=== PATIENT | female | born 1950 | race Caucasian/White ===

== ENCOUNTER 2016-05-06 10:58 | Day surgery (SDC) | payer OTHER ==
[~2016-05-06 10:58] MED LIST: LIDOCAINE 2% JELLY 20 ML (UROJECT) ONE; levOFLOXACIN 500 MG/DEXTROSE 100 ML IV ONE
[2016-05-06] MEDS ORDERED: levOFLOXACIN 500 MG/DEXTROSE/100 ML BAG IV ONE (11:34)
[2016-05-06] MEDS ORDERED: LIDOCAINE 1% 5 ML SDV ONE (11:34)
[2016-05-06] MEDS ORDERED: fentaNYL 100 MCG/2 ML INJ ONE ×3 (12:15→13:54)
[2016-05-06] MEDS ORDERED: PROPOFOL 200 MG/20 ML VIAL ONE (12:16)
[2016-05-06] MEDS ORDERED: ONDANSETRON 4 MG/2 ML VIAL ONE (12:17)
[2016-05-06] MEDS ORDERED: METOCLOPRAMIDE 10 MG/2 ML VIAL ONE (12:17)
[2016-05-06] MEDS ORDERED: MIDAZOLAM 2 MG/2 ML VIAL ONE (12:43)
[2016-05-06] MEDS ORDERED: ROCURONIUM 50 MG/5 ML VIAL ONE (13:58)
[2016-05-06] MEDS ORDERED: SUGAMMADEX SODIUM 200 MG/2 ML VIAL IVP ONE (14:13)
--- NOTE | 2016-05-06 14:31 | POSTOPPROG ---
Post Op Note Date of Operation: 05/06/16 Surgeon: Yo Sanchez (# [id number]) Anesthesia: LMA Pre-op Diagnosis: Bladder lesions Post-op Diagnosis: Bladder lesions, > 5 cm Procedure: TURBT Findings: See op note Inf/Abcess present in the surg proc area at time of surgery?: No EBL: Minimal (< 10 cc) Complications: None Specimen(s): 1. Right lateral bladder wall 2. Bladder dome
--- NOTE | 2016-05-06 14:57 | GOP ---
[f rep st] OPERATIVE REPORT DATE OF OPERATION: 05/06/2016 SURGEON: Yo Sanchez MD ANESTHESIA: Laryngeal mask. PREOPERATIVE DIAGNOSIS: Abnormal erythematous bladder lesions. POSTOPERATIVE DIAGNOSIS: Abnormal erythematous bladder lesions, greater than 5 cm. PROCEDURE PERFORMED: Transurethral resection and fulguration of bladder lesions, greater than 5 cm. FINDINGS: SPECIMENS: 1. Right lateral wall bladder biopsies. 2. Bladder dome biopsies. ESTIMATED BLOOD LOSS: Less than 10 cc. INDICATIONS: This woman has had issues with recurrent urinary tract infections and underwent recent office cystoscopy, which revealed abnormal bladder lesions involving several areas of her bladder. I t is recommended that she undergo intraoperative biopsies and management at this time. The indicatio ns for the procedure, as well as potential risks and complications were discussed with the patient pr eoperatively. She appeared to understand, her questions were answered, and she wished to proceed. Arsenio edmundo informed surgical consent was thereafter obtained. DESCRIPTION OF PROCEDURE: The patient was brought to the operating room and administered laryngeal m ask anesthesia. She was carefully placed in the dorsal lithotomy position on the cystoscopic table. The genital area was sterilely prepped with Betadine scrub and paint, and then draped in the usual s terile fashion. Cystoscopy was performed with a 30 degree and 70 degree lenses through a 22-Greek sheath. However, the urethra did require dilation with Howard sounds up to 24-Greek before I could insert the cystos copic sheath. The remainder of the urethra was unremarkable. Examination of the bladder revealed se ssile erythema involving the right lateral wall, lateral and posterior to the right ureteral orifice, encompassing at least 2-3 cm. There was a larger area of bladder wall erythema with raised associat ed polyps along the dome and right anterolateral aspects. Slab Miller Operator pictures were taken of thes e areas of the bladder and will be placed in the patient's office chart. Ureteral orifices were norm al in regard to shape and position along the trigone. I used cold cup biopsy forceps to obtain repre sentative biopsies of the right lateral wall lesions and submitted these to Pathology for histologic examination. I then inserted a 26-Greek resectoscope sheath with the obturator, Ling resectoscope, and a rese cting loop. I then carefully resected a significant portion of the erythematous papillary lesions at the dome of the bladder. I then used a button electrode to fulgurate all the biopsied regions of pipo th the dome, as well as the right lateral wall. I did not treat the entire region of erythema along the dome because it was a significant portion of the bladder and I did not feel this would be of bene fit if the biopsy results were benign. Therefore, I did fulgurate the regions that were biopsied luis rufino for hemostasis. At the conclusion of the procedure, the bladder was hemostatic with no eviden ce of gross perforation. The instruments were removed and an 18-Greek Albrecht catheter inserted with 15 cc of sterile fluid olga donna in the balloon. The catheter irrigated manually and the return was very light pink. The cathete r was connected to bag drainage. The patient was then awakened, transferred to her bed, then taken to the recovery room. She tolerate d the procedure well overall. COMPLICATIONS: None. DISPOSITION: She was transferred to the recovery in stable condition and will be discharged with her Albrecht catheter once meeting standard outpatient criteria. She will be instructed to remove her cat heter in 4 days at home and hold her aspirin during that time as well. She will also follow up in my office as scheduled in about 2 weeks. /[id number]/MODL
[2016-05-06] MEDS ORDERED: HYDROCODONE/APAP 5/325 TAB ONE (15:28)
== END 2016-05-06 17:00 | disposition home or self-care (01) ==
LOC: FPAT 10:58 → FSGY 10:58 → FPAT 17:00
PROVIDERS: ATTEND Specialist
PROC: 0TBB8ZZ Excision of Bladder, Via Natural or Artificial Opening Endoscopic (ICD-10-PCS; principal; 2016-05-06 12:45)
DX: N30.00 Acute cystitis without hematuria (principal); N30.20 Other chronic cystitis without hematuria; Z87.440 Personal history of urinary (tract) infections
CPT/HCPCS: J1956; J2250; J2405; J2704; J2765; J3010

== ENCOUNTER → 2017-01-05 | Outpatient (CLI) | payer OTHER | LOC: FIMAGING 15:33 | PROVIDERS: ATTEND Obstetrics & Gynecology | DX: Z12.31 Encounter for screening mammogram for malignant neoplasm of breast (principal) | CPT/HCPCS: G0202 ==

== ENCOUNTER → 2017-02-25 | Outpatient (CLI) | payer OTHER ==
[~2017-02-25] MED LIST changes: +IOPAMIDOL (ISOVUE-300) 100 ML BTL ONE; -LIDOCAINE 2% JELLY 20 ML (UROJECT) ONE; -levOFLOXACIN 500 MG/DEXTROSE 100 ML IV ONE
== END ==
LOC: FIMAGING 15:46
PROVIDERS: ATTEND Physician Assistant Medical
DX: R35.1 Nocturia (principal); R31.29 Other microscopic hematuria; R10.2 Pelvic and perineal pain
CPT/HCPCS: Q9967

== ENCOUNTER → 2017-06-16 | Outpatient (CLI) | payer OTHER | LOC: FIMAGING 13:13 | PROVIDERS: ATTEND Family Medicine | DX: Z13.820 Encounter for screening for osteoporosis (principal); E53.8 Deficiency of other specified B group vitamins; Z78.0 Asymptomatic menopausal state ==

== ENCOUNTER → 2018-01-09 | Outpatient (CLI) | payer OTHER | LOC: FIMAGING 08:42 | PROVIDERS: ATTEND Obstetrics & Gynecology | DX: Z12.31 Encounter for screening mammogram for malignant neoplasm of breast (principal) ==

== ENCOUNTER → 2018-01-13 | Outpatient (CLI) | payer OTHER | LOC: FIMAGING 09:38 | PROVIDERS: ATTEND Obstetrics & Gynecology | DX: N63.23 Unspecified lump in the left breast, lower outer quadrant (principal) ==

== ENCOUNTER → 2018-01-23 | Outpatient (CLI) | payer OTHER ==
[~2018-01-23] MED LIST changes: +BUPIVACAINE 0.5% 30 ML SDV ONE; -IOPAMIDOL (ISOVUE-300) 100 ML BTL ONE; +LIDOCAINE 1% 300 MG/30 ML SDV ONE; +THROMBIN (BOVINE) 5,000 UNIT VIAL TP ONE
== END ==
LOC: FIMAGING 07:24
PROVIDERS: ATTEND Obstetrics & Gynecology
PROC: 0HBU3ZX Excision of Left Breast, Percutaneous Approach, Diagnostic (ICD-10-PCS; principal; 2018-01-23)
DX: C50.412 Malignant neoplasm of upper-outer quadrant of left female breast (principal)

== ENCOUNTER → 2018-02-02 | Outpatient (CLI) | payer OTHER ==
[~2018-02-02] MED LIST changes: -BUPIVACAINE 0.5% 30 ML SDV ONE; +GADOBUTROL 10 ML VIAL IVP ONE; -LIDOCAINE 1% 300 MG/30 ML SDV ONE; -THROMBIN (BOVINE) 5,000 UNIT VIAL TP ONE
== END ==
LOC: FIMAGING 09:49
PROVIDERS: ATTEND Surgery
DX: C50.412 Malignant neoplasm of upper-outer quadrant of left female breast (principal)
CPT/HCPCS: 0159T; 77059; 82565-PO; A9585; C8908

== ENCOUNTER 2018-03-07 09:21 | Inpatient (IN) | payer OTHER ==
--- NOTE | 2018-03-06 08:54 | GHP ---
DATE OF ADMISSION: 03/07/2018 DATE OF SURGERY: Scheduled for 03/07/2018. PREOPERATIVE DIAGNOSIS: Left breast invasive ductal carcinoma. HISTORY OF PRESENT ILLNESS: A 67-year-old woman with a new diagnosis of a left breast cancer. Biopsy showed an invasive ductal carcinoma, ER and LA positive, HER-2/chelsea negative, Ki-67 was 5%. She had a breast MRI performed which showed a 1.8 cm mass in the left upper outer quadrant. No other disease, lymphadenopathy. She had genetic testing performed which was negative. She has a significant family history of breast cancer including a paternal aunt at age 46, a paternal 1st cousin at age 48, and paternal 2nd cousin with a history of ovarian cancer at age 58. She is G3, P3, and was 26 years old at the of her 1st child. First menses at age 13. Started menopause in 2006. She is not of Ashkenazi Zoroastrian descent. PAST MEDICAL HISTORY: Asthma, Mi esophagus, chronic UTI, type 2 diabetes, hypertension, GERD, irritable bowel, obstructive sleep apnea, Prinzmetal angina , vitamin B12 deficiency. PAST SURGICAL HISTORY: Arthroscopic shoulder surgery of the left, arthroscopic right knee surgery with meniscal ectomy, bunionectomy, cystoscopy, finger amputation, colovaginal fistula, hysteroscopy, rectal fissure, tonsillectomy. ALLERGIES: ANGELO inhibitors, chocolate, pineapple, Ditropan, iodine, oxybutynin. FAMILY HISTORY: Significant for type 2 diabetes, NC, stroke, lung disease, colon cancer, breast cancer, emphysema. 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 She has been employed for the last 39 years. Her is also an employee at [employer]. She has 3 children and many grandchildren. She reports occasional alcohol use. No recreational drug use or tobacco use. REVIEW OF SYSTEMS: A 10-point review of systems negative aside from HPI. PHYSICAL EXAMINATION: GENERAL: Well-developed, well-nourished woman in no acute distress. HEENT: Normocephalic, atraumatic. No hearing deficits. Pupils equal and round. No scleral icterus. Mucous membranes moist. NECK: Trachea midline. RESPIRATORY: No increased work of breathing. Clear to auscultation bilaterally. CARDIOVASCULAR: Regular rate and rhythm. No peripheral edema. SKIN: Warm and dry. No rash. PSYCH: Mood and affect normal. NEURO: Grossly intact. BREASTS: Exam performed upright and in supine positions. Palpable left upper outer breast mass. No other palpable breast masses. LYMPH: No cervical, supraclavicular or axillary lymphadenopathy. IMPRESSION AND PLAN: A 67-year-old woman with left breast invasive ductal carcinoma. She has elected to proceed with a bilateral mastectomy with no reconstruction. We discussed risks of surgery, including but not limited to, heart attack, stroke, blood clots, or . We discussed risks of infection, bleeding, damage to surrounding structures, need for additional procedures. She will also undergo sentinel lymph node biopsy of both sides. We discussed risks again of infection, bleeding, damage to surrounding structures, numbness, or lymphedema. She understands risks and would like to proceed. The patient was additionally seen by Dr. Karina Patel who agrees with the above impression and plan. /[id number]/MODL MTDD
[2018-03-07] MEDS ORDERED: ceFAZolin 2 GM/DEXTROSE 100 ML IV ONE ×2 (09:36→23:09)
[2018-03-07] MEDS ORDERED: LR 1,000 ML IV ONE (09:36)
[2018-03-07] MEDS ORDERED: LIDOCAINE 1% 2 ML INJ ID PRN (09:36)
[2018-03-07] MEDS ORDERED: BUPIVACAINE 0.5% 30 ML SDV ONE ×2 (09:42→12:59)
[2018-03-07] MEDS ORDERED: THROMBIN (BOVINE) 20,000 UNIT SPRAY TP ONE (09:42)
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
[2018-03-07] MEDS ORDERED: fentaNYL 100 MCG/2 ML INJ ONE ×2 (11:13→23:39)
[2018-03-07] MEDS ORDERED: PROPOFOL 200 MG/20 ML VIAL ONE (11:14)
--- NOTE | 2018-03-07 11:20 | PDHPUP ---
History & Physical Update H&P update statement: This history and physical update is based on an assessment of the patient which was completed after admission or registration (within 24 hours), but prior to the surgery/procedure. H&P update: H&P reviewed & patient examined, no change in patient's condition since H&P completed
[2018-03-07] MEDS ORDERED: MIDAZOLAM 2 MG/2 ML VIAL IVP ONE (11:23)
[2018-03-07] MEDS ORDERED: MIDAZOLAM 2 MG/2 ML VIAL ONE (11:43)
[2018-03-07] MEDS ORDERED: DEXMEDETOMIDINE HCL 400 MCG in NS 100 ML IV SCH (12:00)
[2018-03-07] MEDS ORDERED: HYDROmorphONE/DILAUDID 2 MG/ML INJ ONE (12:26)
[2018-03-07] MEDS ORDERED: LR 500 ML IV PRN (13:22)
[2018-03-07] MEDS ORDERED: NALOXONE HCL 0.4 MG/ML INJ IVP PRN (13:22)
[2018-03-07] MEDS ORDERED: ONDANSETRON 4 MG/2 ML VIAL IVP PRN (13:22)
[2018-03-07] MEDS ORDERED: ACETAMINOPHEN 500 MG TAB PO PRN (13:22)
[2018-03-07] MEDS ORDERED: LABETALOL HCL 20 MG/4 ML INJ IVP PRN (13:22)
[2018-03-07] MEDS ORDERED: PROMETHAZINE HCL 25 MG/ML INJ IVP PRN (13:22)
[2018-03-07] MEDS ORDERED: ALBUTEROL 3 ML DEYVIAL IH PRN (13:22)
[2018-03-07] MEDS ORDERED: HYDROmorphONE/DILAUDID 2 MG/ML INJ IVP PRN (13:22)
[2018-03-07] MEDS ORDERED: oxyCODONE IR 5 MG TAB PO PRN (13:22)
[2018-03-07] MEDS ORDERED: METOCLOPRAMIDE 10 MG/2 ML VIAL IVP PRN (13:22)
[2018-03-07] MEDS ORDERED: MEPERIDINE 25 MG/0.5 ML AMP IVP PRN (13:22)
[2018-03-07] MEDS ORDERED: fentaNYL 100 MCG/2 ML INJ IVP PRN (13:22)
--- NOTE | 2018-03-07 13:41 | POSTOPPROG ---
Post Op Note Date of Operation: 03/07/18 Surgeon: Karina Patel Cattle Sorter: chaim Anesthesiologist: Jil Anesthesia: GET(General Endotracheal) Pre-op Diagnosis: L breast ca Post-op Diagnosis: same Indication: 67yo F with L breast ca who desires B mastectomy Procedure: B mastectomy with B SLN biopsy Findings: none unusual Inf/Abcess present in the surg proc area at time of surgery?: No EBL: Minimal Drains: Preet Grissom (x2) Specimen(s): B breast - fresh B SLN - permanent
[2018-03-07] MEDS ORDERED: ONDANSETRON DISINTEGRATING 4 MG TAB PO PRN (13:45)
[2018-03-07] MEDS ORDERED: HYDROmorphONE/DILAUDID 1 MG/ML INJ IVP PRN (13:45)
[2018-03-07] MEDS ORDERED: diphenhydrAMINE 25 MG CAP PO PRN (13:45)
[2018-03-07] MEDS ORDERED: TRIAMCINOLONE 0.025% 15 GM OINTTUBE TP PRN (13:46)
[2018-03-07] MEDS ORDERED: NITROGLYCERIN 0.4 MG BTL SL PRN (13:46)
[2018-03-07] MEDS ORDERED: D50W 25 GM/50 ML SYR IVP PRN (13:48)
[2018-03-07] MEDS ORDERED: PHENYLEPHRINE HCL 100 MCG/ML SYR IVP PRN (13:55)
[2018-03-07] MEDS ORDERED: ALBUTEROL 60 PUFFS/8 GM MDI IH PRN (14:45)
--- NOTE | 2018-03-07 17:08 | PDMN ---
Medical Necessity Medical necessity: Pt meets inpt criteria per MD order and [facility] S-[id number], Mastectomy , Complete. 67 y/o w/new diagnosis of L breast cancer, invasive duct carcinoma admitted for bilateral mastectomy w/bilateral SLN biopsy. Pt w/multiple comorbidities including asthma, Prinzmetal angina, Barrets esophagus, type 2 diabetes, HTN, GERD, and obstructive sleep apnea, ASA status III per anesthesia. Given comorbidities, higher risk, anticipate ext recovery time.
[2018-03-07] MEDS: HYDROCODONE/APAP 5/325 TAB PO PRN (19:59)
[2018-03-07] MEDS: metFORMIN HCL 500 MG TAB PO SCH (19:59)
[2018-03-07] MEDS ORDERED: NS 1,000 ML IV ONE (23:00)
--- NOTE | 2018-03-07 23:02 | SOAPPROG ---
SOAP Progress Note Assessment/Plan: Assessment: POD # 0 s/p bilateral mastectomy, bilateral sln for L breast cancer. Was doing very well this afternoon. No pain. No nausea. FANG drains with minimal output Called at home due to feeling cold and clammy, no uop x 7 hours (bladder scan 550) and new hematoma on R chest - was flat 1 hour ago. Hypotensive Ordered straight cath 1 L NS and came in tachy at 125, feeling better Large hematoma. will go to OR to evacuate. Plan: 03/07/18 23:00 03/07/18 23:04 Objective: Vital Signs Temp Pulse Resp BP Pulse Ox 36.7 C 107 H 18 86/46 L 94 03/07/18 22:24 03/07/18 22:24 03/07/18 22:24 03/07/18 22:24 03/07/18 22:24 03/06/18 03/07/18 03/08/18 05:59 05:59 05:59 Intake Total 930 Output Total 155 Balance 775 ICD10 Worksheet Patient Problems: Problems Problem Status Onset Breast cancer in female Acute - ICD10 Problem Qualifiers (1) Breast cancer in female Qualifiers: Estrogen receptor status: positive Laterality: left
[2018-03-07] MEDS: ONDANSETRON 4 MG/2 ML VIAL IVP PRN (23:38)
[2018-03-07] MEDS ORDERED: PROPOFOL/EMULSION 500 MG/50 ML BOTTLE IV ONE (23:40)
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
[2018-03-08] MEDS ORDERED: fentaNYL 100 MCG/2 ML INJ IVP PRN (00:28)
[2018-03-08] MEDS ORDERED: NALOXONE HCL 0.4 MG/ML INJ IVP PRN (00:28)
[2018-03-08] MEDS ORDERED: LR 500 ML IV PRN (00:28)
[2018-03-08] MEDS ORDERED: PHENYLEPHRINE HCL 100 MCG/ML SYR IVP PRN (00:28)
[2018-03-08] MEDS ORDERED: BUPIVACAINE 0.5% 30 ML SDV ONE ×2 (00:31→00:32)
--- NOTE | 2018-03-08 01:31 | POSTOPPROG ---
Post Op Note Date of Operation: 03/08/18 Surgeon: Karina Patel Anesthesiologist: geetha Anesthesia: GET(General Endotracheal) Pre-op Diagnosis: R breast hematoma Post-op Diagnosis: same Indication: 67yo s/p b mastectomy with acute onset hematoma Procedure: evac hematoma Rchest Findings: 500 cc oldblood Inf/Abcess present in the surg proc area at time of surgery?: No Drains: Preet Grissom
--- NOTE | 2018-03-08 01:35 | POSTANESTH ---
Post Anesthetic Evaluation Cardiovascular Status: Normal, Stable Respiratory Status: Normal, Stable Level of Consciousness/Mental Status: Mildly Sleepy, Arousable Pain Control: Adequate, Prn Tx Ordered Nausea/Vomiting Control: Adequate, Prn Tx Ordered Complications Possibly Related to Anesthesia: None Noted
[2018-03-08] MEDS: NS 1,000 ML IV SCH ×3 (02:13→16:30)
[2018-03-08 05:36] LABS: INR 1.17 (0.83-1.16); PROTIME(PATIENT) 15.1 SEC (12.0-15.0)
[2018-03-08] MEDS: metFORMIN HCL 500 MG TAB PO SCH ×2 (08:07→18:30)
[2018-03-08] MEDS: ceFAZolin 2 GM/DEXTROSE 100 ML IV SCH ×2 (08:07→16:30)
[2018-03-08] MEDS: ISOSORBIDE MONONITRATE 30 MG TAB.SR PO SCH (08:07)
[2018-03-08] MEDS: MAGNESIUM OXIDE 400 MG TAB PO SCH (08:07)
[2018-03-08] MEDS: ATORVASTATIN CALCIUM 10 MG TAB PO SCH (08:07)
[2018-03-08] MEDS: LOSARTAN POTASSIUM 50 MG TAB PO SCH (08:08)
[2018-03-08] MEDS: Fluticasone/Vilanterol [Breo Ellipta 200-25 Mcg Inh] IH SCH (08:08)
[2018-03-08] MEDS: PANTOPRAZOLE SODIUM 40 MG TAB PO SCH (08:08)
[2018-03-08] MEDS: INSULIN GLARGINE 100 UNITS/ML UNIT SC SCH (08:08)
[2018-03-08] MEDS: TROSPIUM CHLORIDE 60 MG PO SCH (08:13)
--- NOTE | 2018-03-08 08:25 | POSTANESTH ---
Post Anesthetic Evaluation Cardiovascular Status: Normal, Stable Respiratory Status: Normal, Stable Level of Consciousness/Mental Status: Can Participate in Eval Pain Control: Adequate, Prn Tx Ordered Nausea/Vomiting Control: Adequate, Prn Tx Ordered Complications Possibly Related to Anesthesia: None Noted (Late entry for documentation. Patient was evaluated at the appropriate time on 03/07/18.)
--- NOTE | 2018-03-08 08:43 | SOAPPROG ---
SOAP Progress Note Assessment/Plan: Assessment: POD # 1 s/p bilateral mastectomy, bilateral sln for L breast cancer. POD # 0 for evacuation of R breast hematoma - sudden onset no distinct bleeder raw on muscle Feeling much better this am Acute anemia blood loss - will recheck H/H this afternoon Diabetes - put on Lantus 40 units instead of home dose. If eats more, then will put back on home dose. Continue other DM meds HTN - holding HCTZ PT/OT Will require 2 midnights due to return to OR with acute blood loss anemia. MCKENZIE Albrecht S: Feeling better O: Lying in bed Some ecchymosis R chest but is flat. Dressings dry. FANG with serosanguinous fluid (just emptied) No evidence active bleeding Distant lung sounds Plan: 03/07/18 23:00 03/07/18 23:04 03/08/18 08:37 Objective: Vital Signs Temp Pulse Resp BP Pulse Ox 36.7 C 75 16 142/48 H 98 03/08/18 05:09 03/08/18 05:09 03/08/18 05:09 03/08/18 08:08 03/08/18 05:09 Laboratory Results 03/08/18 04:47 03/08/18 04:47 03/07/18 03/08/18 03/09/18 05:59 05:59 05:59 Intake Total 2380 Output Total 1385 Balance 995 PT 15.1 SEC (12.0-15.0) H 03/08/18 04:47 INR 1.17 (0.83-1.16) H 03/08/18 04:47 ICD10 Worksheet Patient Problems: Problems Problem Status Onset Breast cancer in female Acute - ICD10 Problem Qualifiers (1) Breast cancer in female Qualifiers: Estrogen receptor status: positive Laterality: left
[2018-03-08] MEDS ORDERED: INSULIN GLARGINE 100 UNITS/ML UNIT SC SCH (09:00)
[2018-03-08] MEDS ORDERED: HYDROCHLOROTHIAZIDE 25 MG TAB PO SCH (09:00)
[2018-03-08] MEDS ORDERED: ENOXAPARIN 40 MG/0.4 ML SYR SC SCH (09:00)
[2018-03-08] MEDS: ONDANSETRON 4 MG/2 ML VIAL IVP PRN (12:51)
--- NOTE | 2018-03-08 13:01 | ASMTCMCOM ---
CM Note CM Note Notes: Chart reviewed for discharge planning purposes. Patient is 67 year old female s/p bilateral mastectomies with complication of bleeding and hematoma. Followed by Stephanie Thomas oncology nurse navigator. Therapies pending. No current needs identified. CM available should needs arise. Plan: Likely home with family support when medically cleared for discharge to home. Date Signed: 03/08/2018 01:00 PM Electronically Signed By:Maegan Gonzales RN
[2018-03-09] MEDS: HYDROCODONE/APAP 5/325 TAB PO PRN (01:10)
[2018-03-09] MEDS: NS 1,000 ML IV SCH ×2 (01:36→11:43)
[2018-03-09] MEDS: Fluticasone/Vilanterol [Breo Ellipta 200-25 Mcg Inh] IH SCH (05:50)
[2018-03-09 06:20] LABS: PLATELET COUNT 165 10^3/uL (150-400)
[2018-03-09] MEDS ORDERED: ACETAMINOPHEN 325 MG TAB PO ONE ×3 (07:02→17:06)
[2018-03-09] MEDS: ACETAMINOPHEN 325 MG TAB PO PRN (08:20)
[2018-03-09] MEDS: PANTOPRAZOLE SODIUM 40 MG TAB PO SCH (08:20)
[2018-03-09] MEDS: metFORMIN HCL 500 MG TAB PO SCH ×2 (08:20→17:26)
[2018-03-09] MEDS: MAGNESIUM OXIDE 400 MG TAB PO SCH (08:20)
[2018-03-09] MEDS: INSULIN GLARGINE 100 UNITS/ML UNIT SC SCH (08:21)
[2018-03-09] MEDS: ATORVASTATIN CALCIUM 10 MG TAB PO SCH (08:21)
[2018-03-09] MEDS: TROSPIUM CHLORIDE 60 MG PO SCH (08:21)
[2018-03-09] MEDS: ISOSORBIDE MONONITRATE 30 MG TAB.SR PO SCH (09:28)
[2018-03-09] MEDS: LOSARTAN POTASSIUM 50 MG TAB PO SCH (09:28)
--- NOTE | 2018-03-09 11:59 | SOAPPROG ---
SOAP Progress Note Assessment/Plan: Assessment: POD # 2 s/p bilateral mastectomy, bilateral sln for L breast cancer. POD # 1 for evacuation of R breast hematoma - sudden onset no distinct bleeder raw on muscle Acute anemia blood loss - Transfusion reaction Diabetes - put on Lantus 40 units instead of home dose. If eats more, then will put back on home dose. Continue other DM meds HTN - holding HCTZ H/H down to 6.3. Will pre med and transfuse blood. No signs of external bleeding PT/OT Will require 2 midnights due to return to OR with acute blood loss anemia. S: Tired O: Lying in bed Some ecchymosis R chest but is flat. Dressings dry. FANG with serosanguinous fluid (just emptied) No evidence active bleeding Distant lung sounds Regular rate Plan: 03/07/18 23:00 03/07/18 23:04 03/08/18 08:37 03/09/18 11:57 Objective: Vital Signs Temp Pulse Resp BP Pulse Ox 37.1 C 87 24 H 96/44 L 94 03/09/18 07:29 03/09/18 07:29 03/09/18 07:29 03/09/18 09:28 03/09/18 07:29 Laboratory Results 03/09/18 05:26 03/08/18 04:47 03/08/18 03/09/18 03/10/18 05:59 05:59 05:59 Intake Total 2380 3529 Output Total 1385 2570 175 Balance 995 959 -175 PT 15.1 SEC (12.0-15.0) H 03/08/18 04:47 INR 1.17 (0.83-1.16) H 03/08/18 04:47 ICD10 Worksheet Patient Problems: Problems Problem Status Onset Breast cancer in female Acute - ICD10 Problem Qualifiers (1) Breast cancer in female Qualifiers: Estrogen receptor status: positive Laterality: left
[2018-03-09] MEDS ORDERED: INSULIN GLARGINE 100 UNITS/ML UNIT SC SCH ×2 (12:00→21:00)
[2018-03-10] MEDS: ACETAMINOPHEN 325 MG TAB PO PRN (05:12)
[2018-03-10] MEDS: NS 1,000 ML IV SCH (05:16)
[2018-03-10 05:18] LABS: PLATELET COUNT 152 10^3/uL (150-400)
[2018-03-10] MEDS: Fluticasone/Vilanterol [Breo Ellipta 200-25 Mcg Inh] IH SCH (05:24)
[2018-03-10] MEDS: metFORMIN HCL 500 MG TAB PO SCH (07:53)
[2018-03-10] MEDS: MAGNESIUM OXIDE 400 MG TAB PO SCH (07:55)
[2018-03-10] MEDS: PANTOPRAZOLE SODIUM 40 MG TAB PO SCH (07:56)
[2018-03-10] MEDS: ATORVASTATIN CALCIUM 10 MG TAB PO SCH (07:56)
--- NOTE | 2018-03-10 08:15 | SOAPPROG ---
SOAP Progress Note Assessment/Plan: Assessment: POD # 3 s/p bilateral mastectomy, bilateral sln for L breast cancer. POD # 2 for evacuation of R breast hematoma - sudden onset no distinct bleeder raw on muscle Acute anemia blood loss - Transfusion reaction Diabetes - home meds now HTN - Restarted [place] and HCTZ H/H responded to transfusion x 2 units PT/OT Will require 2 midnights due to return to OR with acute blood loss anemia. S: Much improved. Has more energy O: Sitting up in bed, eating breakfast Some ecchymosis R chest both superior and inferior but is flat. Dressings dry. FANG with serosanguinous fluid Distant lung sounds Regular rate Plan: 03/07/18 23:00 03/07/18 23:04 03/08/18 08:37 03/09/18 11:57 03/10/18 08:14 Objective: Vital Signs Temp Pulse Resp BP Pulse Ox 37.1 C 76 18 147/60 H 94 03/10/18 07:45 03/10/18 07:45 03/10/18 07:45 03/10/18 07:48 03/10/18 07:45 Laboratory Results 03/10/18 04:53 03/08/18 04:47 03/09/18 03/10/18 03/11/18 05:59 05:59 05:59 Intake Total 3529 2886 Output Total 2570 450 40 Balance 959 2436 -40 PT 15.1 SEC (12.0-15.0) H 03/08/18 04:47 INR 1.17 (0.83-1.16) H 03/08/18 04:47 ICD10 Worksheet Patient Problems: Problems Problem Status Onset Breast cancer in female Acute - ICD10 Problem Qualifiers (1) Breast cancer in female Qualifiers: Estrogen receptor status: positive Laterality: left
[2018-03-10] MEDS ORDERED: INSULIN GLARGINE 100 UNITS/ML UNIT SC SCH (09:00)
[2018-03-10] MEDS ORDERED: HYDROCHLOROTHIAZIDE 12.5 MG CAP PO SCH (09:00)
[2018-03-10] MEDS: ISOSORBIDE MONONITRATE 30 MG TAB.SR PO SCH (09:35)
[2018-03-10] MEDS: LOSARTAN POTASSIUM 50 MG TAB PO SCH (09:35)
--- NOTE | 2018-03-10 09:50 | ASMTLACE ---
LACE Length of stay for Answers: 3 days current admission Acuity / Level of Answers: Yes Care: Did the patient have an inpatient admission? Comorbidities - select Answers: Any tumor (including all that apply lymphoma or leukemia) Diabetes (uncontrolled or controlled) Other Notes: HTN; Hx of TBI # of Emergency department Answers: 0 visits in the last 6 months Score: 10 Date Signed: 03/10/2018 09:49 AM Electronically Signed By:Negrita Griffin
[2018-03-10 12:30] VITALS: BP 156/81
--- NOTE | 2018-03-10 12:33 | ASDISCHSUM ---
Discharge Information Plan Status:Home with No Needs Medically Cleared to Leave:03/09/2018 Discharge Date:03/09/2018 CM D/C Disposition:Home, Routine, Self-Care ADT D/C Disposition:Home, Routine, Self-Care Projected Discharge Date:03/09/2018 Transportation at D/C:Family Discharge Delay Reason: Follow-Up Date:03/09/2018 Discharge Slot: Final Diagnosis:Breast CA Placement Information Patient Contact Information Contact Name:DENZEL Relationship: Address:[address] City:[facility] Phone: [facility]/Zip Code:[place] [address] Email: Financial Information Financial Class:[employer] Primary Plan Desc:[facility] Primary Plan Number:[id number] Secondary Plan Desc:MEDICARE INPATIENT Secondary Plan Number:[id number] Assessment Information LACE LACE Length of stay for Answers: 3 days current admission Acuity / Level of Answers: Yes Care: Did the patient have an inpatient admission? Comorbidities - select Answers: Any tumor (including all that apply lymphoma or leukemia) Diabetes (uncontrolled or controlled) Other Notes: HTN; Hx of TBI # of Emergency department Answers: 0 visits in the last 6 months Score: 10 Date Signed: 03/10/2018 09:49 AM Electronically Signed By:Negrita Griffin [facility] CM Progress Note CM Note CM Note Notes: Chart reviewed for discharge planning purposes. Patient is 67 year old female s/p bilateral mastectomies with complication of bleeding and hematoma. Followed by Stephanie Thomas oncology nurse navigator. Therapies pending. No current needs identified. CM available should needs arise. Plan: Likely home with family support when medically cleared for discharge to home. Date Signed: 03/08/2018 01:00 PM Electronically Signed By:Maegan Gonzales RN Case Management Discharge Plan Note Case Management Discharge Discharge Order Complete? Answers: Yes Patient to Obtain Answers: via Family Medications Transportation Arranged Answers: Family/Friends Transport will Pick (Date 03/10/2018 12:00 AM & Time) Family Notified Answers: Yes Notes: in the room Discharge Comments Notes: Spoke with pt and family in the room as well as with RN. Pt plans to discharge independently and feels comfortable with that plan. Therapies have not been able to eval, however pt understands she can request home care before departure if needed. No further CM needs noted at this time. Date Signed: 03/10/2018 12:32 PM Electronically Signed By:Negrita Griffin Intervention Information Intervention Type:*Incorrect Registration Date of Service:03/07/2018 05:11 PM Patient Type:Inpatient Staff Member:JAYSON Goodman, Coretta Hours: Discipline: Severity: Comment: Intervention Type:*IM-Signed Date of Service:03/10/2018 11:53 AM Patient Type:Inpatient Staff Member:Cari Keller Hours: Discipline: Severity: Comment:
[2018-03-10] MEDS: TROSPIUM CHLORIDE 60 MG PO SCH (14:16)
--- NOTE | 2018-03-10 15:38 | GDS ---
ADMITTING DIAGNOSIS: Left breast cancer. SECONDARY DIAGNOSES: 1. Acute blood-loss anemia - improved. 2. Postoperative hypotension - resolved. 3. Asthma. 4. Mi esophagus. 5. Type 2 diabetes. 6. Hypertension. 7. Gastroesophageal reflux disease. 8. Irritable bowel. 9. Obstructive sleep apnea. REASON FOR ADMISSION: This is a 67-year-old woman with a new diagnosis of left breast cancer. She desires bilateral mastectomy without reconstruction. She was admitted for surgical intervention, pain control, and observation. HOSPITAL COURSE: She was taken to the operating room by Dr. Karina Patel on , for bilateral mastectomy, bilateral sentinel lymph node biopsy. No reconstruction. At the time of dictation final pathology is pending. She had 1 FANG drain placed on each side. Overnight following surgery she developed postoperative hypotension and an H and H performed showed acute blood loss anemia. On exam, she had increased swelling and bruising of her right chest wall. She was taken to the operating room for evacuation of a right chest hematoma. Approximately 500 cc of old blood was evacuated. On postoperative day #1, her hemoglobin and hematocrit continue to fall. Postoperative day #2, her hemoglobin was 6.3, hematocrit 19.6. She received 2 units of packed red blood cells which she tolerated well with premedication of benadryl and tylenol. On postoperative day #3 her H and H responded appropriately. Her blood sugars were well controlled. Her blood pressure was back within normal range. She was restarted on her home blood pressure medications. Her pain is well controlled without use of prescription pain medication. She was ambulating independently and ready for discharge on postoperative day #3. CONDITION: She is being discharged home in stable condition. Pain is well controlled, tolerating regular diet, ambulating independently. DISCHARGE MEDICATIONS: She was instructed to resume all of her home medications. Please see EMR for further details. Prescription provided for [employer] and instructed to continue [id number] pain medication such as Tylenol as needed. DISCHARGE INSTRUCTIONS AND FOLLOWUP: She will follow up in 1 week or sooner if her drains are ready to be removed. She will empty and record FANG drain output daily. She understands that the drains will be removed when less than 20 cc out per day x2 consecutive days. She will call with any worsening symptoms, questions or concerns. She may shower. Avoid heavy lifting, pushing, or pulling. Avoid soaking incisions in bathtubs, swimming pool, or hot tub. /[id number]/MODL MTDD
[2018-03-11] MEDS ORDERED: Semaglutide [Ozempic] 0.5 MG SQ SCH (09:00)
--- NOTE | 2018-03-14 14:05 | PQFORM ---
PHYSICIAN QUERY FORM Needs Your Response This query form is being sent to you to assure this patient record is coded properly. Please respond to the question below: SALES OFFICE ASSISTANT QUESTION: Dr Patel Progress notes mention that the patient had a transfusion reaction with a drop to 7.1, however this is not reflected in the Discharge Summary. Did the patient have a Transfusion Reaction ? ___ Yes Thank You Beulah CABAN Silver Steward INSTRUCTIONS FOR RESPONSE: Answer question by clicking on the "Edit Document" button. Move cursor to area below the stars. When complete, hit "Save." Click on the "Sign" button, then click "Sign" again. Type in your PIN and hit "Enter." MTDD
--- NOTE | 2018-03-14 14:07 | PQFORM ---
PHYSICIAN QUERY FORM Needs Your Response This query form is being sent to you to assure this patient record is coded properly. Please respond to the question below: READERS' ADVISORY SERVICE LIBRARIAN QUESTION: Would you consider this patients breast hematoma to be a complication of surgery ? ___ Unable to determine Most likely yes as she just had surgery. However, unusual in that it appeared suddenly about 10 hours after surgery. Chest was flat, then didn't feel well and then instant hematoma Thank You Beulah Zarate INSTRUCTIONS FOR RESPONSE: Answer question by clicking on the "Edit Document" button. Move cursor to area below the stars. When complete, hit "Save." Click on the "Sign" button, then click "Sign" again. Type in your PIN and hit "Enter." MTDD
--- NOTE | 2018-03-15 09:42 | GOP ---
DATE OF OPERATION: 03/07/2018 SURGEON: Karina Patel MD POLISHER IMPLANT: Yohana Dickens, YANELIS ANESTHESIA: General. ANESTHESIOLOGIST: Dr. Tasia Ley PREOPERATIVE DIAGNOSIS: Left breast cancer. POSTOPERATIVE DIAGNOSIS: Left breast cancer. PROCEDURE PERFORMED: Bilateral mastectomy with bilateral sentinel lymph node biopsy. FINDINGS: No unusual findings. SPECIMENS: Right breast short superior, long lateral, right sentinel lymph node. Let breast short superior, long lateral, left sentinel lymph node. ESTIMATED BLOOD LOSS: 50 cc. INDICATIONS: The patient is a 67-year-old woman who was recently diagnosed with breast cancer. She desires bilateral mastectomy without reconstruction. DESCRIPTION OF PROCEDURE: Patient was brought into the operating room, placed supine on the table, and general anesthesia was administered. Her bilateral chest and axilla were prepped and draped in the usual sterile fashion. I made an ellipse around the nipple areolar complex and included excess skin on the right breast. I created skin flaps and my dissection occurred to the clavicle, sternum, inframammary fold, and anterior axillary line. I removed the breast tissue from the pectoralis fascia. It was marked short superior, long lateral. I used the sentinel node probe to identify the sentinel node, which was very superficial and submitted this to Pathology. Hemostasis was achieved in this cavity. Next, attention was drawn to the left side, and again, I made an ellipse, taking a lot of skin, and this dissection occurred in a similar fashion. The sentinel lymph node on this side was also extremely superficial. Hemostasis was achieved. I placed a 15 round silicone drain in each wound which was sutured in place with 3-0 nylon. Hemostasis was achieved. The wounds were closed with 3-0 Vicryl. Attention was drawn to the lateral flaps. An additional tissue was excised. I tacked the lateral flap down to the fascia by the anterior axillary line so that there would not be bulging of the tissue. Skin closed with Stratafix. Mastisol, Steri-Strips, sterile dressings applied. She was awakened in the operating room, extubated, transferred to PACU in stable condition. DRAINS: Preet-Grissom x2. /[id number]/MODL MTDD
--- NOTE | 2018-03-15 20:26 | GOP ---
DATE OF OPERATION: 03/08/2018 SURGEON: Karina Patel MD ANESTHESIA: General. ANESTHESIOLOGIST: Winnie Kelly MD PREOPERATIVE DIAGNOSIS: Right breast hematoma. POSTOPERATIVE DIAGNOSIS: Right breast hematoma. PROCEDURE PERFORMED: Evacuation right breast hematoma and drain placement. FINDINGS: Large hematoma over right breast. No distinct bleeder. SPECIMENS: None. ESTIMATED BLOOD LOSS: Over 500 cc of old blood. INDICATIONS: The patient is a 67-year-old woman who had a bilateral mastectomy without reconstruction about 12 hours ago. She was doing extremely well when she had abrupt onset of pain and her right breast swelled dramatically within minutes. I came in from home and evaluated her. I immediately booked her for the operating room. DESCRIPTION OF PROCEDURE: Patient was brought into the operating room, placed supine on the table and general anesthesia was administered. I removed the drain. Her right chest was prepped and draped in the usual sterile fashion. I opened the previous incision. I evacuated a large amount of clotted hematoma. No distinct bleeders were found. There was a small amount of oozing from the pectoralis muscle. Meticulous hemostasis was achieved. I then placed 25,000 units of thrombin in the wound. I replaced the FANG drain with a 15 round silicone drain, which was sutured into place with 3-0 nylon. I closed the wound with 3-0 Vicryl followed by 4-0 Monocryl and Mastisol, Steri-Strips, sterile dressing applied. She was awakened in the operating room, extubated, transferred to PACU in stable condition. /[id number]/MODL MTDD
== END 2018-03-10 14:11 | disposition home or self-care (01) | DRG 580 ==
LOC: F3N 09:21 → F1N 10:05 → OBSVTOIN 13:49 → F1N 15:22
PROVIDERS: ADMIT Surgery; ATTEND Surgery
PROC: 30233N1 Transfusion of Nonautologous Red Blood Cells into Peripheral Vein, Percutaneous Approach (ICD-10-PCS; 2018-03-07)
PROC: 07B60ZX Excision of Left Axillary Lymphatic, Open Approach, Diagnostic (ICD-10-PCS; principal; 2018-03-07 11:30)
PROC: 07B50ZX Excision of Right Axillary Lymphatic, Open Approach, Diagnostic (ICD-10-PCS; principal; 2018-03-07 11:30)
PROC: 0HTV0ZZ Resection of Bilateral Breast, Open Approach (ICD-10-PCS; principal; 2018-03-07 11:30)
PROC: 0KCF0ZZ Extirpation of Matter from Right Trunk Muscle, Open Approach (ICD-10-PCS; 2018-03-07 11:30)
DX: C50.412 Malignant neoplasm of upper-outer quadrant of left female breast (principal); Z17.0 Estrogen receptor positive status [ER+]; D62 Acute posthemorrhagic anemia; T80.92XA Unspecified transfusion reaction, initial encounter; L76.32 Postprocedural hematoma of skin and subcutaneous tissue following other procedure; E11.9 Type 2 diabetes mellitus without complications; I10 Essential (primary) hypertension; K21.9 Gastro-esophageal reflux disease without esophagitis; G47.33 Obstructive sleep apnea (adult) (pediatric); K22.70 Barrett's esophagus without dysplasia; Z80.3 Family history of malignant neoplasm of breast; Z87.440 Personal history of urinary (tract) infections
CPT/HCPCS: A9520; J0690; J1170; J1200; J1815; J2250; J2405; J2704; J3010; P9016